=== PATIENT | male | born 1930 | race Caucasian/White ===

== ENCOUNTER → 2020-01-19 | Outpatient (CLI) | payer BC, OTHER ==
[~2020-01-19] MED LIST: AZIT-21 PO; CEFP500T4 PO; CLOP75TA PO; IPRA3AMP19 IH; METH4TAB PO; SIMVASTATIN; SYNTHROID
--- NOTE | 2020-01-19 10:40 | Diagnostic Imaging Report ---
PROCEDURE: US carotid duplex, bilateral. INDICATION: Left ventricular dysfunction, dizziness. TECHNIQUE: Multiple real-time grayscale images were obtained over the carotid arteries in various projections bilaterally. Additional spectral analysis and color Doppler and Duplex images were also obtained. FINDINGS: Color images demonstrate moderate scattered plaque formation. This is most pronounced at the level of the distal common carotid arteries and carotid bifurcations. Right Carotid System: Right Common Carotid Artery: Patent. There is no abnormally elevated velocity to suggest a hemodynamically significant stenosis. Right Internal Carotid Artery: Patent. There is no abnormally elevated velocity to suggest a hemodynamically significant stenosis. Right External Carotid Artery: Patent. Left Carotid System: Left Common Carotid Artery: Patent. There is no abnormally elevated velocity to suggest a hemodynamically significant stenosis. Left Internal Carotid Artery: Patent. There is no abnormally elevated velocity to suggest a hemodynamically significant stenosis. Left External Carotid Artery: Patent. Vertebral arteries: Patent and with antegrade direction of flow. DOPPLER (peak systolic velocity M/S Right Left CCA 0.75 0.72 ICA Proximal 0.65 0.37 ICA Mid 0.45 0.34 ICA Distal 0.68 0.47 RATIO 0.91 0.65 ECA 0.72 0.60 VERT 0.27 0.30 IMPRESSION: 1. Carotid Doppler imaging demonstrates moderate scattered plaque to be present. No findings to suggest a hemodynamically significant stenosis of the internal carotid arteries at this time. Parameters based on the consensus panel Deleon-Scale and Doppler ultrasound criteria published December 2002, Radiology, Volume 229. Dictated by: Dictated on workstation # [id number]
== END ==
LOC: RAD 09:20
DX: I51.9 Heart disease, unspecified (principal)
CPT/HCPCS: 93306; 93880

== ENCOUNTER → 2020-06-25 | Outpatient (CLI) | payer MEDICARE, OTHER | LOC: CARD 08:55 | PROVIDERS: ATTEND Nurse Practitioner Family | DX: I25.10 Atherosclerotic heart disease of native coronary artery without angina pectoris (principal); I48.11 Longstanding persistent atrial fibrillation | CPT/HCPCS: 93306 ==

== ENCOUNTER → 2020-08-19 | Outpatient (CLI) | payer MEDICARE | LOC: CARD 15:00 | PROVIDERS: ATTEND Nurse Practitioner Family | DX: I48.11 Longstanding persistent atrial fibrillation (principal); Z95.0 Presence of cardiac pacemaker | CPT/HCPCS: 93225; 93226 ==

== ENCOUNTER → 2021-10-05 | Outpatient (CLI) | payer MEDICARE ==
[~2021-10-05] MED LIST changes: +ASPI-1238 PO; +CLOP75TA28 PO; +LEVO125T PO; +RIVA2.5T5 PO
== END ==
LOC: PREOP 07:08
PROVIDERS: ATTEND Surgery
DX: Z01.812 Encounter for preprocedural laboratory examination (principal); K40.90 Unilateral inguinal hernia, without obstruction or gangrene, not specified as recurrent

== ENCOUNTER 2021-10-06 10:40 | Day surgery (SDC) | payer MEDICARE, OTHER ==
--- NOTE | 2021-10-05 09:10 | HISTORY AND PHYSICAL ---
DATE OF SERVICE: ATTENDING PRIMARY CARE PHYSICIAN: Dr. Leonard Taylor. HISTORY OF PRESENT ILLNESS: The patient is an 89-year-old male referred over to us for pain and swelling in the left inguinal region. He reports that he noticed this during the fall of 2019 after acquiring COVID and having coughing episodes. Since that time, this lesion has grown larger in size. He reports that this has become painful as well. Upon examination, he does have a recurrent left inguinal hernia, which is tender to palpation; however, reducible. He reports that he has had two inguinal hernia repairs on the right side and once on the left. He is otherwise eating well and having normal bowel movements. 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 PAST MEDICAL HISTORY: Congestive heart failure, atrial fibrillation, history of COVID-19 in 12/2019 with mild long symptoms including fatigue and head fog. Sciatica, left lower extremity. PAST SURGICAL HISTORY: Laparoscopic right inguinal hernia repair x2, left inguinal hernia repair x1. Laparoscopic cholecystectomy, left total hip arthroplasty in 192, bilateral shoulders in the s. ALLERGIES: PENICILLIN, IV DYE, CIPROFLOXACIN. MEDICATIONS: Atenolol 5 mg daily, Xarelto 10 mg daily. SOCIAL HISTORY: Previous smoker, quit in 1984 ten pack years. Negative alcohol. FAMILY HISTORY: Noncontributory. VITAL SIGNS: Blood pressure 152/82. Current weight 168.2 pounds at 5 feet 10 inches. REVIEW OF SYSTEMS: Well-nourished male currently in no acute distress. He is not experiencing any shortness of breath or difficulty breathing. No chest pain, palpitations, diaphoresis. No nausea, vomiting, no diarrhea or constipation. No fever, chills, no recent inadvertent weight loss. All other review of systems negative. PHYSICAL EXAMINATION: CHEST: Clear. Good breath sounds bilaterally. HEART: Regular, no murmurs. EXTREMITIES: No lower extremity edema, negative Homans sign. HEENT: No scleral icterus. NECK: No cervical lymphadenopathy. ABDOMEN: Soft, nondistended. There is a reducible left recurrent inguinal hernia, which is tender to palpation; however, reducible. SKIN: Warm, dry. ASSESSMENT AND PLAN: An 89-year-old male with recurrent symptomatic reducible left inguinal hernia. The natural history of hernias were explained to the patient as well as the risks and benefits of surgery. He is in full understanding of this and would like to proceed with a recurrent left inguinal hernia repair with mesh, which we will proceed with scheduling after getting a cardiac clearance. Job ID: [id number] DocumentID: [id number] Dictated Date: 10/04/2021 15:54:51 Surgery Aide Date: 10/04/2021 16:11:08 Dictated By: KIARA GRIFFIN MD
[~2021-10-06] VITALS: Ht 177.8 cm; Wt 74.1 kg
[2021-10-06] VITALS (11 sets, daily range): BP systolic 114–153; BP diastolic 49–98
[~2021-10-06 10:40] MED LIST changes: +LACTATED RINGERS 1,000 ML IV PRN; -LEVO125T PO; -RIVA2.5T5 PO
[2021-10-06] MEDS ORDERED: ACETAMINOPHEN 325 MG TABLET PO PRN (11:00)
[2021-10-06] MEDS ORDERED: CLINDAMYCIN 600 MG/50 ML IVPB 50 ML IV NR (11:00)
[2021-10-06] MEDS ORDERED: morphine INJ 10 MG/ML 1ML (SYR OR VIAL) IVP PRN (11:00)
[2021-10-06] MEDS ORDERED: HYDROcodone/APAP 5 MG/325 MG (LORTAB) TAB PO ONE (11:00)
[2021-10-06] MEDS ORDERED: ONDANSETRON 4 MG/2 ML (SDV) Z0FRAN IVP PRN ×2 (11:00→14:45)
--- NOTE | 2021-10-06 11:00 | Progress Note-Pre Operative ---
Pre-Operative Progress Note Date H&P Reviewed: Oct 06, 2021 Time H&P Reviewed: 10:55 History & Physical: H&P Reviewed, Patient Examed, No changes noted Pre-Operative Diagnosis: Symptomatic recurrent left inguinal hernia NAHED ECHOLS APRN Oct 06, 2021 11:00
--- NOTE | 2021-10-06 11:01 | Discharge Inst-Surgical ---
D/C Lap Instructions-KIDO Reconcile Patient Problems Problems Reviewed?: Yes New, Converted, or Re-Newed RX: RX on Chart Follow Up Appt in 2 weeks Activity as tolerated No driving for 24 hours No driving while on pain medications Incentive Spirometry use every 2 hours while awake Regular Diet Symptoms to Report: Fever over 101 degree F, Nausea/Vomiting Infection Signs and Symptoms to report: Increased redness, Foul odor of wound, Increased drainage Bathing instructions: May shower Operative Area Clean/Dry; Keep incision clean/dry If any problems/questions: Contact your physician or go to Emergency Room NAHED ECHOLS APRN Oct 06, 2021 11:01
[2021-10-06] MEDS ORDERED: LEVO125T PO (11:02)
[2021-10-06] MEDS ORDERED: RIVA2.5T5 PO (11:03)
[2021-10-06] MEDS ORDERED: LIDOCAINE/EPI 2% 1:200,00 (XYLOCAINE) 20 ML VIAL ONE (12:18)
[2021-10-06] MEDS ORDERED: proPOfol 200 MG/20 ML (DIPRIVAN) VIAL IV ONE (12:43)
[2021-10-06] MEDS ORDERED: LIDOCAINE PF 2% 5 ML (XYLOCAINE) VIAL ONE (12:43)
[2021-10-06] MEDS ORDERED: fentaNYL INJ 100 MCG/2 ML AMP ONE (12:43)
[2021-10-06] MEDS ORDERED: ROCURONIUM 50 MG/5 ML (ZEMURON) VIAL IV ONE (12:43)
[2021-10-06] MEDS ORDERED: ONDANSETRON 4 MG/2 ML (SDV) Z0FRAN ONE (12:43)
--- NOTE | 2021-10-06 14:06 | Progress Note-Post Operative ---
Post-Operative Progess Note Surgeon (s)/Civil Rights Investigator (s) Surgeon KIARA GRIFFIN MD Civil Rights Investigator: elena yap [facility] Pre-Operative Diagnosis Symptomatic recurrent left inguinal hernia Post-Operative Diagnosis same, indirect Procedure & Operative Findings Date of Procedure 10/06/21 Procedure Performed/Findings laparoscopic recurrent left inguinal hernia repair with mesh. Anesthesia Type get Estimated Blood Loss Estimated blood loss (mL): minimal Specimens/Packing Specimens Removed none KIARA GRIFFIN MD Oct 06, 2021 14:06
[2021-10-06] MEDS ORDERED: SEVOFLURANE (ULTANE) 15 ML INHAL SOLN ONE (14:26)
[2021-10-06] MEDS ORDERED: fentaNYL INJ 100 MCG/2 ML AMP IVP ONE (14:45)
--- NOTE | 2021-10-06 22:47 | OPERATIVE REPORT ---
DATE OF SERVICE: 10/06/2021 ATTENDING PRIMARY CARE PHYSICIAN: Dr. Leonard Taylor. PREOPERATIVE DIAGNOSIS: Recurrent symptomatic left inguinal hernia. POSTOPERATIVE DIAGNOSIS: Recurrent left reducible indirect inguinal hernia. PROCEDURE: Laparoscopic recurrent left inguinal hernia repair with mesh. SURGEON: Kiara Griffin MD. ANESTHESIA: General endotracheal. ESTIMATED BLOOD LOSS: Minimal. FINDINGS: Same as postoperative diagnosis. DISPOSITION: The patient tolerated the procedure well. INDICATIONS: The patient is an 89-year-old male referred over to us for pain and swelling in the left inguinal region. He first noticed this in the fall of 2019 after acquiring COVID and having coughing episodes. Since that time, this lesion has grown larger in size and become more symptomatic. Upon examination, he did have a recurrent left inguinal hernia, which was tender to palpation; however, reducible. He has had previous inguinal hernias in the past. He has had right inguinal hernias twice that were repaired and he has already had one repair on the left side. He is otherwise eating well and having normal bowel movements. During the episode of COVID, he did develop transient congestive heart failure and did develop atrial fibrillation and does have a pacemaker implanted as well as placed on Xarelto 10 mg daily. DESCRIPTION OF PROCEDURE: The patient was brought to the operating room, laid supine on the table. After adequate IV pain and sedative medications and general endotracheal intubation, the abdomen was prepped and draped in standard surgical fashion. A 0.5% Marcaine with epinephrine was used to anesthetize the infraumbilical rim and a crescent shaped skin incision made using a 15 blade. A sharp towel clamp was used to retract the abdominal wall anteriorly and a Veress needle inserted with a low opening pressure of 0 mmHg. The abdomen was then insufflated to 15 mmHg pressure. The Veress needle removed and a 10 mm XL trocar placed followed by a 10 mm 45-degree angle laparoscope visualizing the peritoneal cavity. A 4-quadrant abdominal exploration was performed. A recurrent left inguinal hernia was identified, which was indirect inguinal hernia. There was no right inguinal hernia component. Under direct visualization, we then proceeded to place bilateral 5 mm ports under direct visualization after the skin and peritoneal lining were anesthetized using 0.5% Marcaine with epinephrine and transverse skin incision was made using a 15 blade. The patient was then placed in Trendelenburg position. The peritoneal lining was then opened laterally towards the conjoined tendon and inguinal ligament using the Sonicision. We then proceeded medially until Michael's ligament was reached. We then proceeded with inferior dissection identifying the hernia sac as well as a cord and the surrounding cord contents and preserving the structures around them. Good hemostasis was observed. A medium size 3DMax polypropylene mesh was then placed through the 10 mm port site and tacked to Michael's ligament medially with the AbsorbaTack into the inguinal ligament laterally. The peritoneal lining was then placed over the mesh and a few tacks placed to hold this in place with visualization of good hemostasis. The 10 mm port site fascia and peritoneum were then closed under direct visualization using a Toy-Duy device and 0 Vicryl suture. The abdomen was desufflated and remaining ports removed. All skin incisions were closed using 4-0 Monocryl running subcuticular sutures. Wounds were then cleaned and covered with Dermabond. The patient tolerated the procedure well. We will start IV normal pain medication as well as a clear liquid diet. Once he is tolerating clears with good pain control with oral pain medications, ambulating well, we will discharge him home where he will be instructed to do no heavy lifting or exertion for the next two weeks with nothing greater than 15-20 pounds; however, continue to refrain from significant heavy lifting exertion for a total of 6 weeks from the surgery date. Job ID: [id number] DocumentID: [id number] Dictated Date: 10/06/2021 14:11:53 Research Quality Assurance Analyst Date: 10/06/2021 22:47:18 Dictated By: KIARA GRIFFIN MD
== END 2021-10-06 16:45 | disposition home or self-care (01) ==
LOC: SDC 10:40
PROVIDERS: ATTEND Surgery
DX: K40.91 Unilateral inguinal hernia, without obstruction or gangrene, recurrent (principal); R53.83 Other fatigue; R41.9 Unspecified symptoms and signs involving cognitive functions and awareness; U09.9 Post COVID-19 condition, unspecified; K21.9 Gastro-esophageal reflux disease without esophagitis; Z95.0 Presence of cardiac pacemaker; Z79.01 Long term (current) use of anticoagulants; Z88.0 Allergy status to penicillin; Z88.1 Allergy status to other antibiotic agents; Z91.041 Radiographic dye allergy status
CPT/HCPCS: 49651; 87081; C1781